=== PATIENT | female | born 1985 | race Caucasian/White ===

== ENCOUNTER → 2016-08-13 | Outpatient (CLI) | payer OTHER ==
[~2016-08-13] MED LIST: NEOM1SUS21 OP; OXYC-57 PO; PRED-301 PO
== END | disposition home or self-care (01) ==
LOC: C.PAPS 11:56
PROVIDERS: ATTEND Obstetrics & Gynecology
DX: Z12.4 Encounter for screening for malignant neoplasm of cervix (principal); N88.0 Leukoplakia of cervix uteri

== ENCOUNTER → 2016-10-29 | Outpatient (CLI) | payer OTHER ==
[2016-10-29 14:42] LABS: BASO % 0.2 %; BASO ABS # 0.02 K/uL (0-0.2); COMPLETE YES; EOS % 2.1 %; HEMATOCRIT 41.6 % (37-47); IG% 0.2 %; LYMPH % 27.1 %; LYMPH ABS # 2.82 K/uL (1.2-3.4); MEAN CORPUSCULAR HEMOGLOBIN 32.6 pg (25-34); MEAN CORPUSCULAR HGB CONC 33.7 g/dl (32-36); MEAN PLATELET VOLUME 10.8 fL (7.4-10.4); MONO % 6.5 %; NEUT % 63.9 %; PLATELET COUNT 323 K/uL (130-400); RED BLOOD COUNT 4.29 M/uL (4.2-5.4); WHITE BLOOD COUNT 10.39 K/uL (4.8-10.8)
[2016-10-29 15:28] LABS: ALT/SGPT 24 U/L (12-78); AST/SGOT 12 U/L (15-37); BLOOD UREA NITROGEN 12 mg/dl (7-18); BUN/CREATININE RATIO 13.4 (10-20); CALCIUM 9.1 mg/dl (8.5-10.1); CARBON DIOXIDE 27 mmol/L (21-32); CHLORIDE 109 mmol/L (98-107); CREATININE 0.86 mg/dl (0.60-1.20); GLUCOSE 91 mg/dl (70-99); POTASSIUM 4.2 mmol/L (3.5-5.1); SODIUM 143 mmol/L (136-145)
[2016-10-29 15:34] LABS: ALKALINE PHOSPHATASE 73 U/L (45-117)
== END | disposition home or self-care (01) ==
LOC: C.LAB1850 13:19
PROVIDERS: ATTEND Internal Medicine
DX: M06.9 Rheumatoid arthritis, unspecified (principal); E55.9 Vitamin D deficiency, unspecified

== ENCOUNTER → 2017-02-27 | Outpatient (CLI) | payer OTHER | END | disposition home or self-care (01) | LOC: C.PAPS 11:33 | PROVIDERS: ATTEND Obstetrics & Gynecology | DX: N87.1 Moderate cervical dysplasia (principal) ==

== ENCOUNTER → 2017-05-21 | Outpatient (CLI) | payer OTHER ==
--- NOTE | 2017-05-21 10:42 | DIAGNOSTIC IMAGING REPORT ---
RIGHT LOWER QUADRANT ABDOMINAL ULTRASOUND HISTORY: Right lower quadrant abdominal pain. . COMPARISON: None. FINDINGS: Transabdominal scanning of the right lower quadrant was performed. The appendix was not identified. There are no fluid collections or masses within the right lower quadrant. IMPRESSION: No abnormality within the right lower quadrant. Electronically signed by: Adithya Quarles M.D. 05/21/2017 10:41 AM Dictated Date/Time: 05/21/2017 10:40 AM
--- NOTE | 2017-05-21 10:45 | DIAGNOSTIC IMAGING REPORT ---
PELVIC ULTRASOUND, TRANSABDOMINAL AND TRANSVAGINAL HISTORY: R10.31 Abdominal pain, chronic, right lower [id number] COMPARISON: Abdomen and pelvis CT 08/31/2014. Pelvic ultrasound 10/09/2011. FINDINGS: Uterus: 8.1 x 4.4 x 5.3 cm. No uterine masses. A few small nabothian cysts. Endometrial stripe: 9 mm in thickness. Right ovary: Normal in size and demonstrates normal color flow. A few small follicles/cysts and a 2.2 cm complex cyst. This favors a small hemorrhagic cyst or corpus luteum. Left ovary: Normal in size and demonstrates normal color flow. A few small follicles/cysts. Miscellaneous:No pelvic free fluid. IMPRESSION: 1. Normal uterus and left ovary. 2. A 2.2 cm complex cyst within the right ovary which favors a small hemorrhagic cyst or corpus luteum. Electronically signed by: Adithya Quarles M.D. 05/21/2017 10:44 AM Dictated Date/Time: 05/21/2017 10:41 AM
== END | disposition home or self-care (01) ==
LOC: C.ULTR 09:34
PROVIDERS: ATTEND Internal Medicine
DX: R10.31 Right lower quadrant pain (principal); R10.2 Pelvic and perineal pain; N83.201 Unspecified ovarian cyst, right side

== ENCOUNTER → 2017-09-02 | Outpatient (CLI) | payer OTHER | END | disposition home or self-care (01) | LOC: C.PAPS 11:34 | PROVIDERS: ATTEND Obstetrics & Gynecology | DX: N87.1 Moderate cervical dysplasia (principal) ==